=== PATIENT | female | born 1980 | race Caucasian/White ===

== ENCOUNTER 2021-09-17 22:51 | Emergency (ER) | payer OTHER ==
[2021-09-18] MEDS ORDERED: IBUPROFEN600 MG PO (02:09)
== END 2021-09-18 02:12 | disposition home or self-care (01) ==
LOC: ER1 22:51
DX: M25.562 Pain in left knee (principal); M79.602 Pain in left arm; R07.89 Other chest pain; V43.52XA Car driver injured in collision with other type car in traffic accident, initial encounter; Y92.410 Unspecified street and highway as the place of occurrence of the external cause
CPT/HCPCS: 70450; 71260; 72125; 72128; 72131; 73060; 73090; 73130; 73562; 93005; 99284; Q9967